=== PATIENT | male | born 1990 | race African-American/Black ===

== ENCOUNTER 2021-08-15 20:56 | Observation (INO) | payer SELFPAY ==
[~2021-08-15] VITALS: Ht 175.3 cm; Wt 81.4 kg
[2021-08-15 21:45] LABS: BASO % 0.3 % (0.0-2.0); EOS % 0.6 % (0-4.0); GRAN # 5.2 K/mm3 (1.4-6.5); HEMOGLOBIN 11.2 g/dl (13.5-18.0); LYMPH # 1.6 K/mm3 (1.2-3.4); LYMPH % 21.3 % (20.0-51.0); MEAN CELL VOLUME 80 fl (80.0-100.0); MEAN CORPUSCULAR HEMOGLOBIN 27 pg (27.0-31.0); MEAN CORPUSCULAR HGB CONC 34 g/dl (33.0-37.0); MEAN PLATELET VOLUME 12.3 fl (7.4-10.4); MONO # 0.4 K/mm3 (0.1-0.6); MONO % 5.5 % (1.7-9.3); PLATELET COUNT 267 K/mm3 (130-400); REDCELL DISTRIBUTION WIDTH-CV 12.1 % (11.5-14.5)
[2021-08-15 21:51] LABS: HEMATOCRIT 32.6 % (42.0-52.0)
[2021-08-15 22:02] LABS: ALANINE AMINOTRANSFERASE 23 U/L (0-55); ALBUMIN 3.6 gm/dL (3.5-5.0); ALKALINE PHOSPHATASE 95 U/L (0-750); ANION GAP 13 mmol/L (7-16); AST,SGOT 30 U/L (5-34); BILIRUBIN,TOTAL 0.3 mg/dL (0.2-1.2); BLOOD UREA NITROGEN 36 mg/dL (9-21); CALCIUM 9.1 mg/dL (8.4-10.2); CARBON DIOXIDE 21 mmol/L (22-29); CHLORIDE 94 mmol/L (98-107); CREATININE, serum 2.88 mg/dL (0.72-1.25); POTASSIUM 4.1 mmol/L (3.5-4.5); SODIUM 128 mmol/L (136-145); TOTAL PROTEIN 6.6 gm/dL (6.2-8.1)
[2021-08-15 22:03] LABS: GLUCOSE 859 mg/dL (70-99)
[2021-08-15 22:28] LABS: ACETONE,SERUM NEGATIVE
[2021-08-15 22:46] LABS: COLLECTION METHOD CLEAN CATCH
[2021-08-15 23:11] LABS: PH 5 (5-8); SQUAMOUS EPITHELIAL None Seen /hpf; URINE APPEARANCE Clear; URINE BACTERIA None Seen /hpf; URINE BILIRUBIN Negative (NEGATIVE); URINE BLOOD Negative (NEGATIVE); URINE COLOR Colorless; URINE GLUCOSE 3+ (NEGATIVE); URINE KETONE Negative (NEGATIVE); URINE LEUKOCYTE ESTERASE Negative (NEGATIVE); URINE NITRATE Negative (NEGATIVE); URINE PROTEIN(semi-quant) Negative (NEGATIVE); URINE RBC None Seen /hpf; URINE UROBILINOGEN Negative (NEGATIVE)
[2021-08-16 01:45] VITALS: BP 113/78; PULSE 98; TEMP 98.6
[2021-08-16] MEDS ORDERED: HUMULIN 70/3100 U/M1 SQ (02:14)
--- NOTE | 2021-08-16 02:26 | NUR ---
Patient arrived surgical floor room 324 from ER around 01:30 am. Patient alert and oriented. Patient reports bliateral lower extremity weakness. Lower extremity pulses are palpable and sensations intact. No edema noted. Patient denies pain, SOB, N/V, headache, or dizziness. Patient reports feeling hungry and requesting food. Ice water and sandwitch (removed cookie and apple sauce from box) provided. Oriented patient to the room. IVF started per JAN. Scheduled med given per JAN. VS stable. Call light in reach. Bed alarms on. Will monitor hyper/hypoglycemic symptoms.
[2021-08-16 02:37] LABS: MAGNESIUM 1.9 mg/dL (1.6-2.6); PHOSPHOROUS 2.7 mg/dL (2.3-4.7)
[2021-08-16 04:06] VITALS: BP 103/54; PULSE 107; TEMP 98.2
--- NOTE | 2021-08-16 04:46 | NUR ---
Patient's BG was 56 at 04:09 am. Patient denies hypoglycemic symptoms. 4 oz of orange juice and sandwich box provided. Recheck of BG was 108 at 04:44 am. Call light in reach. Will continue to monitor.
[2021-08-16 07:15] LABS: BASO % 0.5 % (0.0-2.0); EOS # 0.1 K/mm3 (0.0-0.7); EOS % 1.6 % (0-4.0); LYMPH # 2.2 K/mm3 (1.2-3.4); LYMPH % 37.7 % (20.0-51.0); MEAN CELL VOLUME 80 fl (80.0-100.0); MEAN CORPUSCULAR HGB CONC 35 g/dl (33.0-37.0); MEAN PLATELET VOLUME 12.2 fl (7.4-10.4); MONO # 0.5 K/mm3 (0.1-0.6); MONO % 7.9 % (1.7-9.3); PLATELET COUNT 234 K/mm3 (130-400); RED BLOOD COUNT 3.42 M/mm3 (4.20-5.60); REDCELL DISTRIBUTION WIDTH-CV 12.1 % (11.5-14.5)
[2021-08-16 07:18] LABS: TRICYCLIC ANTIDEPRESS URINE NEGATIVE
[2021-08-16 07:21] LABS: HEMATOCRIT 27.3 % (42.0-52.0); HEMOGLOBIN 9.5 g/dl (13.5-18.0); MEAN CORPUSCULAR HEMOGLOBIN 28 pg (27.0-31.0)
[2021-08-16 07:38] LABS: CALCIUM 8.4 mg/dL (8.4-10.2); CREATININE, serum 2.05 mg/dL (0.72-1.25); POTASSIUM 3.2 mmol/L (3.5-4.5)
[2021-08-16 07:45] VITALS: BP 120/88; PULSE 99; TEMP 98.6
--- NOTE | 2021-08-16 10:30 | NUR ---
Patient alert and oriented, answers questions appropriately. See assessment. Patient has generalized open areas on BLE/BUE, state he does not know what they are from, in various stages of healing. Patient has to be awoken several times throughout conversation and assessment, asks to be "left alone." Refuses visit from rn social services at this time as well. No other c/o at this time.
--- NOTE | 2021-08-16 11:17 | NUR ---
Bone Plant Supervisor stopped by but patient requested to rest.
[2021-08-16 11:41] VITALS: BP 120/82; PULSE 99; TEMP 98.5
--- NOTE | 2021-08-16 15:12 | NUR ---
Plan is to return home locally. Wilver reports that he recently moved to the area from [facility]. Patient reports that he has been here for two weeks and is not working. 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 Patient reports that he has been diabetic for a long time and it has not been managed. Patient reports that he is set up through [place] to have his bill medical bill paid at any [facility]. Educated the patient that we can follow-up with [facility] to support medical bills, and made referral. Mother Shana Jessica? is contact [phone]. Patient indicaed that he does not use any DME use and does not have a PCP. Patient is okay with referral to PCP. Patient has transportation. SW worked towards obtaining medications with consult with shree riley and Lew. Insulin Aspart Flex is 285 per box. Insulin Human ISo 70/30 253.41 a box. Prodigy or True Metrix Kit 15.00. Strips are 12.21. and Lancets 7.99. To get patient setup voucher would need to be a minimum 400.00. Educated patient and staffed with the about the [facility] and setting patient up with more care as the may help patient up to a year versus short term services. Educated Case managment will work on PCP Next Week as we can not secure of the weekend. DA gave patient resource sheet for supports in the area. Patient is agreeable to stay over the weekend to work with Dispensary and educated luis antonio on Wednesday and wednesday DC. Will follow.
[2021-08-16 16:00] VITALS: BP 127/81; PULSE 98; TEMP 98.7
[2021-08-16 20:18] VITALS: BP 101/75; PULSE 118; TEMP 98.6
[2021-08-17 00:37] VITALS: BP 112/68; PULSE 109; TEMP 98.7
[2021-08-17 04:32] VITALS: BP 102/64; PULSE 104; TEMP 98.2
--- NOTE | 2021-08-17 06:48 | NUR ---
Pt. OOB independently and ambulating the hallway. This RN introduced self and informed pt. this RN would be his nurse for today. Pt. denies needs at this time, call light and belongings in reach.
[2021-08-17 07:39] LABS: BASO % 0.4 % (0.0-2.0); EOS # 0.1 K/mm3 (0.0-0.7); GRAN # 3.3 K/mm3 (1.4-6.5); GRAN % 47.8 % (42.2-75.2); LYMPH # 3.1 K/mm3 (1.2-3.4); LYMPH % 44.7 % (20.0-51.0); MEAN CELL VOLUME 83 fl (80.0-100.0); MEAN CORPUSCULAR HGB CONC 33 g/dl (33.0-37.0); MEAN PLATELET VOLUME 12.1 fl (7.4-10.4); MONO # 0.4 K/mm3 (0.1-0.6); MONO % 5.7 % (1.7-9.3); PLATELET COUNT 241 K/mm3 (130-400); RED BLOOD COUNT 3.55 M/mm3 (4.20-5.60); REDCELL DISTRIBUTION WIDTH-CV 12.4 % (11.5-14.5)
[2021-08-17 07:49] LABS: HEMATOCRIT 29.5 % (42.0-52.0); HEMOGLOBIN 9.8 g/dl (13.5-18.0); MEAN CORPUSCULAR HEMOGLOBIN 28 pg (27.0-31.0)
[2021-08-17 08:00] VITALS: BP 102/63; PULSE 108; TEMP 98.2
--- NOTE | 2021-08-17 08:01 | NUR ---
AM assessment complete. Pt. ate breakfast and sliding scale insulin administered by this RN. Pt. reports he just wants to sleep right now. Ice water provided per pt. request. All other needs met. Call light in reach.
[2021-08-17 08:02] LABS: CALCIUM 8.2 mg/dL (8.4-10.2); CREATININE, serum 1.77 mg/dL (0.72-1.25); POTASSIUM 3.8 mmol/L (3.5-4.5)
--- NOTE | 2021-08-17 11:51 | NUR ---
This RN was in the room when pt. ordered his lunch. Pt. has a regular diet ordered so when he goes home his food intake will reflect what he is eating in the hospital, per Dr. Early note. This RN overheard pt. ordering juice for lunch. This RN inquired if pt. has had diabetes for a long time. This RN asked pt. if he normally drinks juice at home. Pt. reports he normally drinks diet juice at home. This RN educated pt. he should not be drinking full sugar juice with his diabetes diagnosis, and diet powerade or diet soda would be a better option. Pt. reports he was unaware the hospital supplied diet powerade and he would like diet powerade to drink instead of full sugar juice. Pt. agreeable to avoid full sugar juice while he is in the hospital. Pt. is ambulating the unit and agreeable w/ plan of care. Pt. agreeable to wear SCDs at night. Sliding scale insulin administered per order. Needs addressed.
[2021-08-17 12:00] VITALS: BP 109/76; PULSE 107; TEMP 98.4
[2021-08-17 15:48] VITALS: BP 117/73; PULSE 103; TEMP 98.6
--- NOTE | 2021-08-17 19:05 | NUR ---
Pt. requesting nicotine patch. SAHARA Loyola notified on telephone, new order obtained for nicotine patch. Pt. requesting PM melatonin to be given and he reports it takes awhile for the melatonin to work. Melatonin administered early per pt request. Report given to JONNY Milner. Pt.'s needs met.
[2021-08-17 19:38] VITALS: BP 125/68; PULSE 111; TEMP 98.8
[2021-08-18 00:57] VITALS: BP 100/43; PULSE 119; TEMP 98.9
[2021-08-18 03:52] VITALS: BP 132/86; PULSE 101; TEMP 98.3
[2021-08-18 07:38] LABS: MEAN CELL VOLUME 84 fl (80.0-100.0); MEAN CORPUSCULAR HGB CONC 33 g/dl (33.0-37.0); MEAN PLATELET VOLUME 12.1 fl (7.4-10.4); PLATELET COUNT 238 K/mm3 (130-400); RED BLOOD COUNT 3.23 M/mm3 (4.20-5.60); REDCELL DISTRIBUTION WIDTH-CV 12.7 % (11.5-14.5)
[2021-08-18 07:44] LABS: MEAN CORPUSCULAR HEMOGLOBIN 28 pg (27.0-31.0)
[2021-08-18 07:45] VITALS: BP 141/88; PULSE 105; TEMP 97.8
[2021-08-18 08:02] LABS: CALCIUM 8.1 mg/dL (8.4-10.2); CREATININE, serum 1.58 mg/dL (0.72-1.25); PHOSPHOROUS 2.1 mg/dL (2.3-4.7)
--- NOTE | 2021-08-18 10:01 | NUR ---
chemical research worker attempted to speak with the patient about the [facility] and provide him with the application. Upon entering the room, the patient pulled his gown over his head and would not verbally respond when i asked questions. Will need assistance from physician.
[2021-08-18 11:24] VITALS: BP 120/61; PULSE 121; TEMP 98
[2021-08-18] MEDS ORDERED: LANCETS MC (11:47)
[2021-08-18] MEDS ORDERED: FREESTYLE PREC1 EAC5 MC (11:47)
[2021-08-18] MEDS ORDERED: HUMALOG PEN100 U/ML SQ ×2 (11:47→12:48)
[2021-08-18] MEDS ORDERED: THE MEDICINE SH1 DE3 MC (11:47)
[2021-08-18] MEDS ORDERED: BASAGLAR K100 UNIT/1 SQ ×2 (11:47→12:48)
[2021-08-18] MEDS ORDERED: GLUCOSE TEST ST1 DEV MC (11:47)
--- NOTE | 2021-08-18 12:15 | NUR ---
First visit from the security operations center operator. Patient asked for prayer, rosary and bible. Scroll Assembler delivered all those items, no other needs right now.
--- NOTE | 2021-08-18 14:05 | NUR ---
wireworker supervisor collaborated with physician and pharmacy to [facility]. Due to patient discharging, the patient was provided a voucher for [facility] for initial supplies. [facility]ary [facility] paperwork faxed and patient has been instructed to call them when he needs a refill. Patient provided taxi voucher for transportation to pharmacy and then home. Patient set up with Jaqu[facility] PARTIDA for PCP care. Patient educated that they will send him new patient forms electronically and that they are scheduling out to [facility].
[2021-08-18] MEDS ORDERED: VITAMIN D 50,1.25 MG PO (14:09)
--- NOTE | 2021-08-18 14:50 | NUR ---
Discharge education provided to patient. Educated on when to call provider and follow up appointment. Patient educated on monitoring blood sugars and compliance with medications. All questions answered. INT to left hand discontinued catheter tip intact. No further needs at this time. Patient out by wheelchair with surgical staff.
== END 2021-08-18 14:50 | disposition home or self-care (01) ==
LOC: COL.ER 20:56 → SURG 08-16 00:39
PROVIDERS: Emergency Medicine; Internal Medicine; Nurse Practitioner Family; Physician Assistant; ADMIT Student in an Organized Health Care Education/Training Program
DX: E10.65 Type 1 diabetes mellitus with hyperglycemia (principal); E10.42 Type 1 diabetes mellitus with diabetic polyneuropathy; E10.22 Type 1 diabetes mellitus with diabetic chronic kidney disease; N18.9 Chronic kidney disease, unspecified; N17.9 Acute kidney failure, unspecified; E55.9 Vitamin D deficiency, unspecified; E87.6 Hypokalemia; D64.9 Anemia, unspecified; F15.90 Other stimulant use, unspecified, uncomplicated; F17.210 Nicotine dependence, cigarettes, uncomplicated; Z79.4 Long term (current) use of insulin; Z91.14 Patient's other noncompliance with medication regimen; Z90.89 Acquired absence of other organs; Z79.899 Other long term (current) drug therapy; Z80.3 Family history of malignant neoplasm of breast; Z80.9 Family history of malignant neoplasm, unspecified
CPT/HCPCS: 99232-AI; G0378; J1815; J3480; J7030

== ENCOUNTER 2021-09-27 15:36 | Inpatient (IN) | payer SELFPAY ==
[2021-09-27] VITALS (95 sets, daily range): O2SAT 82–100
[~2021-09-27] VITALS: Ht 175.3 cm; Wt 69.1 kg
[~2021-09-27 15:36] MED LIST: BASAGLAR K100 UNIT/1 SQ; FREESTYLE PREC1 EAC5 MC; GLUCOSE TEST ST1 DEV MC; HUMALOG PEN100 U/ML SQ; HUMULIN 70/3100 U/M1 SQ; LANCETS MC; THE MEDICINE SH1 DE3 MC; VITAMIN D 50,1.25 MG PO
[2021-09-27 15:59] LABS: COLLECTION METHOD CLEAN CATCH
[2021-09-27 16:02] LABS: BASO % 0.5 % (0.0-2.0); EOS % 0.5 % (0-4.0); GRAN # 4.8 K/mm3 (1.4-6.5); GRAN % 75.3 % (42.2-75.2); HEMATOCRIT 38.1 % (42.0-52.0); HEMOGLOBIN 13.5 g/dl (13.5-18.0); LYMPH # 1.2 K/mm3 (1.2-3.4); LYMPH % 19.3 % (20.0-51.0); MEAN CELL VOLUME 78 fl (80.0-100.0); MEAN CORPUSCULAR HEMOGLOBIN 28 pg (27.0-31.0); MEAN CORPUSCULAR HGB CONC 35 g/dl (33.0-37.0); MEAN PLATELET VOLUME 12.8 fl (7.4-10.4); MONO # 0.3 K/mm3 (0.1-0.6); MONO % 4.1 % (1.7-9.3); PLATELET COUNT 258 K/mm3 (130-400)
[2021-09-27 16:05] LABS: PH 6 (5-8); SQUAMOUS EPITHELIAL None Seen /hpf (0-10); URINE APPEARANCE Clear (CLEAR/HAZY); URINE BACTERIA None Seen (NONE SEEN); URINE BILIRUBIN Negative (NEGATIVE); URINE BLOOD Negative (NEGATIVE); URINE COLOR Straw (YELLOW); URINE GLUCOSE 3+ (NEGATIVE); URINE KETONE Trace (NEGATIVE); URINE LEUKOCYTE ESTERASE Negative (NEGATIVE); URINE NITRATE Negative (NEGATIVE); URINE PROTEIN(semi-quant) Negative (NEGATIVE); URINE RBC None Seen /hpf (0-2); URINE UROBILINOGEN Negative (NEGATIVE)
[2021-09-27 16:08] LABS: ACETONE,SERUM SMALL
[2021-09-27 16:21] LABS: ALANINE AMINOTRANSFERASE 14 U/L (0-55); ALBUMIN 4.7 gm/dL (3.5-5.0); ALKALINE PHOSPHATASE 105 U/L (40-150); ANION GAP 18 mmol/L (7-16); AST,SGOT 20 U/L (5-34); BILIRUBIN,TOTAL 0.8 mg/dL (0.2-1.2); BLOOD UREA NITROGEN 30 mg/dL (9-21); CALCIUM 9.7 mg/dL (8.4-10.2); CARBON DIOXIDE 18 mmol/L (22-29); CREATININE, serum 3.14 mg/dL (0.72-1.25); LIPASE 23 U/L (8-78); POTASSIUM 5.3 mmol/L (3.5-4.5); TOTAL PROTEIN 8.3 gm/dL (6.2-8.1)
[2021-09-27 16:22] LABS: CHLORIDE 81 mmol/L (98-107); GLUCOSE 1059 mg/dL (70-99); SODIUM 117 mmol/L (136-145)
[2021-09-27 19:16] LABS: CALCIUM 9.7 mg/dL (8.4-10.2); CREATININE, serum 2.67 mg/dL (0.72-1.25)
[2021-09-27] MEDS ORDERED: TUMS500 MG PO (20:11)
--- NOTE | 2021-09-27 20:15 | NUR ---
PT TO ICU 5 BY CART. TRANSFERRED SELF FROM CART TO BED. VSS. INSULIN GTT OFF AT THIS TIME GLUCOSE DROPPED BY 600 IN ED AFTER INSULIN GTT INTIATED. GLUCOSE ASSESSED AT [phone]. PT UNINTERESTED IN TEACHING/QUESTIONS ASKED BY THIS RN. MULTIPLE BAGS OF BELONGINGS BROUGHT. THIS RN AND NATHALIA RN WENT THROUGH TO INVENTORY ITEMS. PT BROUGHT NUMEROUS CLOTHES, 2 "NON WORKING" CELL PHONES, KEYS, WALLET, BACKPACK WITH GLUCOMETER, INSULIN PEN NEEDLES, AND "TITLE". PT SUSPICIOUS OF THIS. THIS RN EXPLAINED THAT WE WANT TO BE SURE PT GOES HOME WITH ITEMS HE CAME IN WITH. WHEN ASKING ADMISSION QUESTIONS, PT WOULD NOT GIVE STRAIGHT ANSWERS. STATING MULTIPLE TIMES "WHATEVER IT SAYS IN THE COMPUTER." ORIENTED TO BED AND SURROUNDS.
--- NOTE | 2021-09-27 21:00 | NUR ---
WHILE SITTING ON EDGE OF BED, PT PULLED IV OUT. IV RESTARTED. INSULIN GTT INTIATED AT 2100 BECAUSE OF IV DISPLACEMENT. THIS RN EXPLAINED THAT HE COULD SIT ON EDGE OF BED BUT NEEDS TO CALL TO GET UP DUE TO BEING HOOKED UP TO MULTIPLE THINGS, INCLUDING IV WITH INSULIN. AT THIS TIME PT VERBALIZED UNDERSTANDING. PT DOES REQUEST SOMETHING TO EAT, NPO ORDERS AT THIS TIME. THIS RN EXPLAINED REASONING.
[2021-09-27 21:13] LABS: CALCIUM 9.6 mg/dL (8.4-10.2); CREATININE, serum 2.57 mg/dL (0.72-1.25); POTASSIUM 4.4 mmol/L (3.5-4.5)
--- NOTE | 2021-09-27 23:00 | NUR ---
THIS RN CALLED INTO ROOM PT WAS UPSET BY BED ALARM BEING ON. BED ALARM PREVIOUSLY PLACED THIS RN SUSPECTED PT GETTING UP WITHOUT RN AFTER HAVING CONVERSATION ABOUT IMPORTANCE TO CALL. PT AGITATED AND SWEARING. UPSET THAT HE HAS NOT HAD ANY FOOD. PT DID ADMIT TO EATING POPCORN FROM BELONGINGS. THIS RN HAS PREVIOUSLY NOTIFIED MARIAELENA RICHMOND AND RECEIVED ORDERS FOR PT TO EAT. LUIS FULLER PREVIOUSLY CALLED TO LOOK FOR SUGAR FREE JELLO AND ICU AND ER OUT. THIS RN AND LEEANN RN IN ROOM. PT CALM AT THIS TIME AFTER GETTING SUGAR FREE JELLO. AGREEABLE TO CALLING WHEN NEEDING TO GET UP. PT AGREEABLE TO WAIT TO EAT SANDWICHES UNTIL BGM HAS DECREASED. PT THANKS BOTH THIS RN AND LUIS FULLER FOR OUR CARE. CALL LIGHT WITHIN REACH.
[2021-09-27 23:25] LABS: CALCIUM 9.3 mg/dL (8.4-10.2); CREATININE, serum 2.44 mg/dL (0.72-1.25); POTASSIUM 3.4 mmol/L (3.5-4.5)
[2021-09-28] VITALS (338 sets, daily range): BP systolic 113–132; BP diastolic 72–88; PULSE 92–95; TEMP 98–98.6; O2SAT 72–100
[2021-09-28 01:34] LABS: CREATININE, serum 2.24 mg/dL (0.72-1.25); POTASSIUM 3.6 mmol/L (3.5-4.5)
[2021-09-28 03:04] LABS: CALCIUM 8.9 mg/dL (8.4-10.2); CREATININE, serum 2.35 mg/dL (0.72-1.25); POTASSIUM 3.4 mmol/L (3.5-4.5)
--- NOTE | 2021-09-28 06:21 | NUR ---
INSULIN GTT TURNED OFF AT 0400, 2 HOURS AFTER LEVEMIR GIVEN DOCUMENTED.
[2021-09-28 06:40] LABS: CALCIUM 8.8 mg/dL (8.4-10.2); CREATININE, serum 2.18 mg/dL (0.72-1.25); POTASSIUM 3.5 mmol/L (3.5-4.5)
[2021-09-28 06:56] LABS: MAGNESIUM 1.7 mg/dL (1.6-2.6)
--- NOTE | 2021-09-28 07:00 | NUR ---
RECEIVED REPORT FROM JONNY ARNOLD. PT WALKING AROUND ROOM. VSS.
[2021-09-28 07:39] LABS: MEAN CELL VOLUME 76 fl (80.0-100.0); MEAN CORPUSCULAR HGB CONC 36 g/dl (33.0-37.0); MEAN PLATELET VOLUME 11.8 fl (7.4-10.4); PLATELET COUNT 220 K/mm3 (130-400); RED BLOOD COUNT 4.05 M/mm3 (4.20-5.60); REDCELL DISTRIBUTION WIDTH-CV 12.1 % (11.5-14.5)
[2021-09-28 07:40] LABS: HEMATOCRIT 30.6 % (42.0-52.0); HEMOGLOBIN 10.9 g/dl (13.5-18.0); MEAN CORPUSCULAR HEMOGLOBIN 27 pg (27.0-31.0)
[2021-09-28 07:42] LABS: CALCIUM 8.8 mg/dL (8.4-10.2); CREATININE, serum 2.18 mg/dL (0.72-1.25)
--- NOTE | 2021-09-28 11:41 | NUR ---
REPORT GIVEN TO JONNY SAXENA ON MEDICAL. PTTRANSFERRED TO 358 VIA . ALL PERSONAL BELONGINGS SENT WITH PT.
--- NOTE | 2021-09-28 13:25 | NUR ---
THIS PATIENT HAS DECIDED THAT HE WOULD LIKE TO LEAVE AMA. THE PATIENT IS STATING THAT HE HAS A RIDE ON THE WAY, AND NEEDS TO LEAVE NOW. CONTACTED DR. TORIBIO WHO IS COMING TO DISCUSS LEAVING AGAINST MEDICAL ADVICE.
== END 2021-09-28 13:25 | disposition left against medical advice (07) | DRG 638 ==
LOC: COL.ER 15:36 → ICU 16:30 → MEDICAL 09-28 12:26
PROVIDERS: Emergency Medicine; ADMIT Internal Medicine
DX: E10.10 Type 1 diabetes mellitus with ketoacidosis without coma (principal); N17.9 Acute kidney failure, unspecified; E10.22 Type 1 diabetes mellitus with diabetic chronic kidney disease; N18.9 Chronic kidney disease, unspecified; F17.210 Nicotine dependence, cigarettes, uncomplicated; E87.5 Hyperkalemia; T38.3X6A Underdosing of insulin and oral hypoglycemic [antidiabetic] drugs, initial encounter; Z91.138 Patient's unintentional underdosing of medication regimen for other reason; Z56.0 Unemployment, unspecified
CPT/HCPCS: 99223-AI; 99233-AI; 99239; C9113; J1644; J1815; J2405; J3480; J7030